=== PATIENT | female | born 1995 | race Caucasian/White ===

== ENCOUNTER 2019-07-21 14:11 | Emergency (ER) | payer OTHER ==
[~2019-07-21] VITALS: Ht 170.2 cm; Wt 61.2 kg
--- NOTE | 2019-07-21 14:20 | NUR ---
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 Pt confused, unable to obtrain history, vss at this time. connected to the monitor and pox
[2019-07-21] MEDS ORDERED: ONDANSETRON HCL/PF 4 MG/2 ML VIAL ONE (14:43)
[2019-07-21] MEDS ORDERED: LORAZEPAM INJ 2 MG/ML VIAL ONE (14:44)
[2019-07-21] MEDS ORDERED: ONDANSETRON HCL/PF 4 MG/2 ML VIAL IVP ONE (15:00)
[2019-07-21] MEDS ORDERED: LORAZEPAM INJ 2 MG/ML VIAL IVP ONE (15:00)
[2019-07-21] MEDS ORDERED: IV NS 0.9% 1,000 ML BAG IV ONE (15:00)
[2019-07-21 15:05] LABS: BASOPHILS % (AUTO) 0.2 % (0.0-2.0); EOSINOPHILS % (AUTO) 0.3 % (0.0-6.0); HEMATOCRIT 43 % (33-45); HEMOGLOBIN 13.9 g/dL (11.5-14.8); LYMPHOCYTES # (AUTO) 1.8 /CMM (0.8-4.8); LYMPHOCYTES % (AUTO) 12.1 % (20.0-44.0); MEAN CORPUSCULAR HGB CONC 32 g/dl (31.0-36.0); MEAN CORPUSCULAR VOLUME 91 fL (82-100); MONOCYTES # (AUTO) 0.9 /CMM (0.1-1.30); MONOCYTES % (AUTO) 6.1 % (2.0-12.0); NEUTROPHILS # (AUTO) 12.1 /CMM (1.8-8.9); NEUTROPHILS % (AUTO) 81.3 % (43.0-81.0); PLATELET COUNT (AUTO) 295 /CMM (150-450); WHITE BLOOD COUNT (AUTO) 14.9 K/uL (4.3-11.0)
[2019-07-21 15:36] LABS: CALCIUM, SERUM 10.5 mg/dL (8.5-10.1); CARBON DIOXIDE 12 mmol/L (21-32); CHLORIDE 103 mmol/L (98-107); CREATININE 1.3 mg/dL (0.6-1.3); GLUCOSE 114 mg/dL (74-106); POTASSIUM 3.9 mmol/L (3.5-5.1); SODIUM SERUM 140 mmol/L (136-145); UREA NITROGEN, BLOOD 16 mg/dL (7-18)
[2019-07-21 15:40] LABS: ALANINE AMINOTRANSFERASE 37 U/L (12-78); ALBUMIN 4.1 g/dL (3.4-5.0); ALCOHOL, BLOOD < 3 mg/dL (0-0); ALKALINE PHOSPHATASE 69 U/L (46-116); ASPARTATE AMINOTRANSFERASE 43 U/L (15-37); BILIRUBIN,DIRECT 0.1 mg/dL (0.0-0.2); BILIRUBIN,TOTAL 0.6 mg/dL (0.2-1.0); TOTAL PROTEIN, SERUM 7.4 g/dL (6.4-8.2)
[2019-07-21 15:44] LABS: ACETAMINOPHEN < 2 ug/ml (10-30); SALICYLATE < 2.8 mg/dL (2.8-20.0)
[2019-07-21] MEDS ORDERED: diphenhydrAMINE HCL 50 MG/ML VIAL ONE (16:29)
[2019-07-21] MEDS ORDERED: diphenhydrAMINE HCL 50 MG/ML VIAL IV ONE (16:30)
--- NOTE | 2019-07-21 16:55 | NUR ---
PT AMBULATED W/ STEADY GAIT
[2019-07-21 16:56] VITALS: BP 103/58
--- NOTE | 2019-07-21 16:56 | NUR ---
discharge patient via ambulatory accompanied by [employer] in no distress. IV removed. Catheter intact and site benign. Pressure and 4x4 applied to site. No bleeding noted.
== END 2019-07-21 16:56 ==
LOC: ER 14:15
DX: F19.10 Other psychoactive substance abuse, uncomplicated (principal); G24.09 Other drug induced dystonia; F17.200 Nicotine dependence, unspecified, uncomplicated; J45.909 Unspecified asthma, uncomplicated
CPT/HCPCS: 36415; 80048; 80076; 80307; 80329; 85025; 96374; 96375; 99283; G0480; J1200; J2060; J2405; J7030

== ENCOUNTER 2020-04-29 10:59 | Emergency (ER) | payer OTHER ==
[~2020-04-29] VITALS: Ht 160 cm; Wt 61.2 kg
--- NOTE | 2020-04-29 11:00 | NUR ---
BIB by barrett durham from [facility] for otb, pt alert and oriented. states she took fentalyn this morning, +nausea -vomit. c/o feeling dizzy. no seizure episode. VSS awaiting for MD mark
[2020-04-29 11:40] VITALS: BP 136/95
== END 2020-04-29 11:41 ==
LOC: ER 11:08
DX: F19.10 Other psychoactive substance abuse, uncomplicated (principal); R11.0 Nausea

== ENCOUNTER 2021-07-12 17:45 | Emergency (ER) | payer OTHER ==
[~2021-07-12] VITALS: Ht 160 cm; Wt 59.0 kg
[2021-07-12 17:57] VITALS: BP 138/78
[2021-07-12] MEDS ORDERED: HYDROCODONE/APAP 5/325MG TABLET PO ONE (18:30)
[2021-07-12] MEDS ORDERED: HYDROCODONE/APAP 5/325MG TABLET ONE (18:52)
[2021-07-12] MEDS ORDERED: NAPR-1009 PO (19:18)
[2021-07-12] MEDS ORDERED: IBUP-1955 PO (19:18)
[2021-07-12] MEDS ORDERED: CYCL5TAB PO (19:18)
--- NOTE | 2021-07-12 19:42 | NUR ---
Patient discharged to home in stable condition. Written and verbal after care instructions given. Patient verbalizes understanding of instruction.
== END 2021-07-12 19:42 | disposition home or self-care (01) ==
LOC: ER 17:50
DX: S93.491A Sprain of other ligament of right ankle, initial encounter (principal); J45.909 Unspecified asthma, uncomplicated; Z88.1 Allergy status to other antibiotic agents; Z60.2 Problems related to living alone; V00.131A Fall from skateboard, initial encounter; Y93.51 Activity, roller skating (inline) and skateboarding; Y92.331 Roller skating rink as the place of occurrence of the external cause; Y99.8 Other external cause status
CPT/HCPCS: 73610-TC; 73630-TC